=== PATIENT | male | born 1960 | race Caucasian/White ===

== ENCOUNTER 2021-04-14 12:33 | Emergency (ER) | payer MEDICAID ==
[~2021-04-14] VITALS: Ht 188 cm; Wt 90.2 kg
[2021-04-14 12:36] VITALS: BP 147/93
== END 2021-04-14 13:30 ==
LOC: ED 13:17
DX: K02.9 Dental caries, unspecified (principal)
CPT/HCPCS: 99283

== ENCOUNTER 2021-06-10 14:07 | Emergency (ER) | payer MEDICAID ==
[~2021-06-10] VITALS: Ht 188 cm; Wt 83.9 kg
--- NOTE | 2021-06-10 14:52 | NUR ---
PT REPORTS BLOOD IN URINE X 2 DAYS, "FEVER, STOOL LIKE GUACAMOLE, CHEST PAIN, AND I'VE LOST ABOUT 40 LBS OVER THE LAST YEAR." Heavy drinker. no hx of blood thinners
[2021-06-10 15:33] LABS: BASOPHILS % (AUTO) 1 % (0-1); EOSINOPHILS % (AUTO) 1 % (1-7); LYMPHOCYTES % (AUTO) 24 % (22-44); MEAN CORPUSCULAR HEMOGLOBIN 34.8 pg (27.5-34.5); MEAN CORPUSCULAR HGB CONC 34.5 g/dL (33.2-36.2); MEAN PLATELET VOLUME 9.3 fL (7.4-10.4); MONOCYTES % (AUTO) 10 % (2-9); NEUTROPHILS % (AUTO) 65 % (42-75); PLATELET COUNT 150 x10^3/uL (130-400); RED BLOOD COUNT 4.61 x10^6/uL (4.38-5.82); RED CELL DISTRIBUTION WIDTH 14.8 % (9.4-14.8)
[2021-06-10 15:45] LABS: ALBUMIN 2.8 g/dL (3.4-5.0); ANION GAP 4 mmol/L (5-15); CALCIUM 8.6 mg/dL (8.5-10.1); CHLORIDE 103 mmol/L (98-107)
[2021-06-10 15:48] LABS: ALANINE AMINOTRANSFERASE 91 U/L (12-78); ALKALINE PHOSPHATASE 191 U/L (45-117); CREATININE 0.94 mg/dL (0.7-1.3); TOTAL PROTEIN 6.2 g/dL (6.4-8.2)
[2021-06-10 16:12] LABS: MICROSCOPIC INDICATED
--- NOTE | 2021-06-10 16:16 | NUR ---
to ct scan
[2021-06-10] MEDS ORDERED: OMNIPAQUE 350 MG/ML, 100ML BOTTLE ONE (16:34)
[2021-06-10] MEDS ORDERED: ACETAMINOPHEN 500 MG TABLET PO ONE (17:30)
[2021-06-10] MEDS ORDERED: ACETAMINOPHEN 500 MG TABLET ONE (17:30)
[2021-06-10 17:36] VITALS: BP 170/57
== END 2021-06-10 17:38 | disposition home or self-care (01) ==
LOC: ED 14:44
DX: R31.0 Gross hematuria (principal); R10.9 Unspecified abdominal pain; R59.0 Localized enlarged lymph nodes; R94.5 Abnormal results of liver function studies; F17.200 Nicotine dependence, unspecified, uncomplicated
CPT/HCPCS: 36415; 71045; 74177; 80053; 81001; 85025; 93005; 99285; Q9967